=== PATIENT | male | born 1980 | race Caucasian/White ===

== ENCOUNTER 2017-02-03 04:45 | Inpatient (IN) | payer MEDICAID ==
[~2017-02-03] VITALS: Ht 177.8 cm; Wt 95.5 kg
[2017-02-03] VITALS (11 sets, daily range): BP systolic 118–158; BP diastolic 71–88
[~2017-02-03 04:45] MED LIST: LORA2TAB2 PO
[2017-02-03 05:39] LABS: BASOPHILS # (AUTO) 0.05 K/uL (0.00-0.20); BASOPHILS % (AUTO) 1.2 % (0.0-2.0); EOSINOPHILS # (AUTO) 0.03 K/uL (0.00-0.70); EOSINOPHILS % (AUTO) 0.64 % (1.0-6.0); HEMOGLOBIN 14.5 g/dL (13.5-17.5); LYMPHOCYTES # (AUTO) 1.4 K/uL (1.0-4.8); LYMPHOCYTES % (AUTO) 33.4 % (22.0-44.0); MEAN CORPUSCULAR HEMOGLOBIN 34.9 pg (26.0-34.0); MEAN CORPUSCULAR HGB CONC 34.5 G/dL (31.0-37.0); MEAN CORPUSCULAR VOLUME 101 fL (80-100); MONOCYTES # (AUTO) 0.3 K/uL (0.1-1.0); MONOCYTES % (AUTO) 7.3 % (2.0-9.0); NEUTROPHILS # (AUTO) 2.4 K/uL (1.8-7.7); NEUTROPHILS % (AUTO) 57.5 % (40.0-70.0); PLATELET COUNT (AUTO) 105 K/uL (150-450); RED BLOOD CELL COUNT(AUTO) 4.16 MIL/uL (4.50-5.90); RED CELL DISTRIBUTION WIDTH 15.9 % (11.5-14.5); WHITE BLOOD COUNT (AUTO) 4.2 K/uL (4.5-11.0)
[2017-02-03 05:53] LABS: ANION GAP 15 mmol/L (8-16); CARBON DIOXIDE 25 mmol/L (22-29); CHLORIDE 94 mmol/L (98-107); CREATININE 0.73 mg/dL (0.60-1.30); GLOMERULAR FILTR. RATE CALC > 60 mL/min (>60); POTASSIUM 3.4 mmol/L (3.5-5.1); SODIUM SERUM 134 mmol/L (136-145); UREA NITROGEN, BLOOD 7 mg/dL (7-18)
[2017-02-03 05:58] LABS: ALANINE AMINOTRANSFERASE 244 U/L (12-78); ALBUMIN 4.1 g/dL (3.4-5.0); ASPARTATE AMINOTRANSFERASE 409 U/L (15-37); BILIRUBIN,TOTAL 2.6 mg/dL (0.1-1.0); TOTAL PROTEIN, SERUM 7.9 g/dL (6.4-8.2)
[2017-02-03] MEDS ORDERED: SODIUM CHLORIDE 0.9% 1,000 ML IV ONE (06:00)
[2017-02-03] MEDS ORDERED: LORazepam 2 MG/ML VIAL IVP ONE (06:00)
[2017-02-03] MEDS ORDERED: ONDANSETRON HCL 4 MG/2 ML VIAL IVP ONE (06:00)
[2017-02-03 07:53] LABS: RBC MORPHOLOGY COMMENT ABNORMAL RBC MORPH
[2017-02-03] MEDS ORDERED: LOPERAMIDE HCL 2 MG CAPSULE PO PRN ×2 (10:30)
[2017-02-03] MEDS ORDERED: ACETAMINOPHEN 325 MG TABLET PO PRN (10:30)
[2017-02-03] MEDS ORDERED: CYANOCOBALAMIN 1,000 MCG/ML VIAL IM ONE (10:30)
[2017-02-03] MEDS ORDERED: ACETAMINOPHEN 500 MG TABLET PO ONE (10:30)
[2017-02-03] MEDS ORDERED: QUEtiapine FUMARATE 100 MG TABLET PO PRN (10:30)
[2017-02-03] MEDS ORDERED: HydrOXYzine PAMOATE 50 MG CAPSULE PO PRN (10:30)
[2017-02-03] MEDS ORDERED: ONDANSETRON HCL 4 MG TABLET PO ONE (10:30)
[2017-02-03] MEDS ORDERED: LORazepam 2 MG TABLET PO ONE (10:30)
[2017-02-03] MEDS ORDERED: GuaiFENesin/D-METHORPHAN [SUGAR-FREE] 200-20MG/10 ML SYRUP UDCUP PO PRN (10:30)
[2017-02-03] MEDS ORDERED: MAG HYDROX/AL HYDROX/SIMETH ES 30 ML SUSPENSION UDCUP PO PRN (10:30)
[2017-02-03] MEDS ORDERED: TUBERCULIN, PURIFIED PROTEIN DERIVATIVE 5 TU/0.1 ML SYG ID ONE (10:30)
[2017-02-03] MEDS ORDERED: MAGNESIUM HYDROXIDE SUSPENSION 30 ML UDCUP PO PRN (10:30)
[2017-02-03] MEDS ORDERED: ACAMPROSATE CALCIUM 333 MG DR TABLET PO SCH (13:00)
[2017-02-03 13:07] LABS: APPEARANCE,URINE CLOUDY (CLEAR); GLUCOSE, URINE (UA) NEGATIVE (NEGATIVE); KETONES,URINE 15 mg/dL (NEGATIVE); LEUKOCYTE ESTERASE ,URINE TRACE (NEGATIVE); OCCULT BLOOD,URINE NEGATIVE (NEGATIVE); PROTEIN,URINE POS 1+ (NEGATIVE)
[2017-02-03] MEDS: DIAZEPAM 10 MG TABLET PO PRN ×2 (13:32→20:15)
[2017-02-03 13:33] LABS: ADD UA MICROSCOPIC YES
[2017-02-03 13:34] LABS: RBC,URINE None Seen /HPF (0-2)
[2017-02-03 13:35] LABS: WBC,URINE 0-2 /HPF (0-5)
[2017-02-03 13:37] LABS: FINE GRANULAR CASTS,URINE 0-2 /LPF (None Seen)
[2017-02-03 13:38] LABS: CALCIUM OXALATE CRYSTALS,UR Few /LPF (None Seen)
[2017-02-03] MEDS ORDERED: INFLUENZA VIRUS VACCINE QVS 2017-18 (3YR+)/PF 60 MCG/0.5 ML SYRINGE IM ONE (14:15)
[2017-02-03] MEDS ORDERED: DIAZEPAM 10 MG TABLET PO ONE (14:30)
[2017-02-03] MEDS ORDERED: PNEUMOCOCCAL VACCINE POLYVALENT 0.5 ML VIAL [PPSV23] IM ONE (15:00)
[2017-02-03] MEDS: GABAPENTIN 300 MG CAPSULE PO SCH ×2 (16:23→20:15)
[2017-02-03] MEDS: THIAMINE HCL 100 MG TABLET PO SCH (16:23)
[2017-02-03] MEDS ORDERED: ONDANSETRON HCL 4 MG TABLET PO PRN (20:15)
[2017-02-03] MEDS: PRAZOSIN HCL 1 MG CAPSULE PO SCH (21:06)
[2017-02-03] MEDS: ZOLPIDEM TARTRATE 10 MG TABLET PO PRN (21:07)
[2017-02-04] VITALS (8 sets, daily range): BP systolic 110–148; BP diastolic 58–98
[2017-02-04] MEDS: DIAZEPAM 10 MG TABLET PO PRN ×2 (06:01→18:18)
[2017-02-04 08:18] LABS: BASOPHILS % (AUTO) 1.2 % (0.0-2.0); EOSINOPHILS % (AUTO) 1.8 % (1.0-6.0); HEMOGLOBIN 13.8 g/dL (13.5-17.5); LYMPHOCYTES # (AUTO) 1.1 K/uL (1.0-4.8); LYMPHOCYTES % (AUTO) 30.8 % (22.0-44.0); MEAN CORPUSCULAR HEMOGLOBIN 35.3 pg (26.0-34.0); MEAN CORPUSCULAR HGB CONC 35.3 G/dL (31.0-37.0); MEAN CORPUSCULAR VOLUME 100 fL (80-100); MONOCYTES # (AUTO) 0.3 K/uL (0.1-1.0); MONOCYTES % (AUTO) 8.7 % (2.0-9.0); NEUTROPHILS % (AUTO) 57.5 % (40.0-70.0); RED CELL DISTRIBUTION WIDTH 15.4 % (11.5-14.5); WHITE BLOOD COUNT (AUTO) 3.4 K/uL (4.5-11.0)
[2017-02-04] MEDS: GABAPENTIN 300 MG CAPSULE PO SCH ×4 (08:20→20:25)
[2017-02-04] MEDS: NALTREXONE HCL 50 MG TABLET PO SCH (08:20)
[2017-02-04] MEDS: FLUoxetine HCL 20 MG CAPSULE PO SCH (08:20)
[2017-02-04] MEDS: DIAZEPAM 10 MG TABLET PO SCH ×4 (08:20→20:26)
[2017-02-04] MEDS: MULTIVITAMINS WITH MINERALS, THERAPEUTIC TABLET PO SCH (08:20)
[2017-02-04] MEDS: THIAMINE HCL 100 MG TABLET PO SCH ×2 (08:20→16:06)
[2017-02-04] MEDS: FOLIC ACID 1 MG TABLET PO SCH (08:20)
[2017-02-04 08:37] LABS: PLATELET COUNT (AUTO) 98 K/uL (150-450)
[2017-02-04] MEDS ORDERED: POTASSIUM CHLORIDE 20 MEQ ER TABLET PO ONE (09:30)
[2017-02-04 09:38] LABS: HEMOGLOBIN A1C 5.5 % (4.5-6.2)
[2017-02-04 09:51] LABS: ALANINE AMINOTRANSFERASE 223 U/L (12-78); ALBUMIN 4.1 g/dL (3.4-5.0); ANION GAP 14 mmol/L (8-16); ASPARTATE AMINOTRANSFERASE 386 U/L (15-37); BILIRUBIN,TOTAL 3.6 mg/dL (0.1-1.0); CALCIUM, TOTAL 9.5 mg/dL (8.8-10.5); CARBON DIOXIDE 27 mmol/L (22-29); CHLORIDE 93 mmol/L (98-107); CHOL/HDL RATIO 17.3 (4.2-7.3); CREATININE 0.87 mg/dL (0.60-1.30); GLOMERULAR FILTR. RATE CALC > 60 mL/min (>60); POTASSIUM 3.6 mmol/L (3.5-5.1); SODIUM SERUM 134 mmol/L (136-145); THYROID STIMULATING HORMONE 2.26 uIU/mL (0.36-3.74); TOTAL PROTEIN, SERUM 7.8 g/dL (6.4-8.2); UREA NITROGEN, BLOOD 12 mg/dL (7-18)
[2017-02-04] MEDS: PRAZOSIN HCL 1 MG CAPSULE PO SCH (20:25)
[2017-02-04] MEDS: ATORVASTATIN CALCIUM 40 MG TABLET PO SCH (21:09)
[2017-02-04] MEDS: ZOLPIDEM TARTRATE 10 MG TABLET PO PRN (21:09)
[2017-02-05 00:24] VITALS: BP 107/64
[2017-02-05] MEDS: DIAZEPAM 10 MG TABLET PO PRN ×2 (00:58→04:36)
[2017-02-05 04:34] VITALS: BP 139/83
[2017-02-05] MEDS: MULTIVITAMINS WITH MINERALS, THERAPEUTIC TABLET PO SCH (08:50)
[2017-02-05] MEDS: FOLIC ACID 1 MG TABLET PO SCH (08:50)
[2017-02-05] MEDS: GABAPENTIN 300 MG CAPSULE PO SCH (08:50)
[2017-02-05] MEDS: DIAZEPAM 10 MG TABLET PO SCH ×4 (08:50→20:17)
[2017-02-05] MEDS: THIAMINE HCL 100 MG TABLET PO SCH ×2 (08:50→16:21)
[2017-02-05] MEDS: FLUoxetine HCL 20 MG CAPSULE PO SCH (08:50)
[2017-02-05] MEDS: NALTREXONE HCL 50 MG TABLET PO SCH (08:50)
[2017-02-05 08:52] VITALS: BP 145/100
[2017-02-05] MEDS: CHOLECALCIFEROL (VIT D3) 1,000 UNITS TABLET PO SCH (08:57)
[2017-02-05 09:11] LABS: APPEARANCE,URINE CLOUDY (CLEAR); GLUCOSE, URINE (UA) NEGATIVE (NEGATIVE); KETONES,URINE 15 mg/dL (NEGATIVE); LEUKOCYTE ESTERASE ,URINE SMALL (NEGATIVE); OCCULT BLOOD,URINE NEGATIVE (NEGATIVE); PROTEIN,URINE SEE CONFIRM (NEGATIVE)
[2017-02-05 09:18] LABS: ADD UA MICROSCOPIC YES
[2017-02-05 09:20] LABS: SULFOSALICYLIC ACID,URINE Trace (Negative)
[2017-02-05 09:23] LABS: RBC,URINE None Seen /HPF (0-2); SQUAMOUS EPITHELIAL CELL,UR Few /LPF (None Seen); WBC,URINE 0-2 /HPF (0-5)
[2017-02-05 09:25] LABS: AMORPHOUS SEDIMENT,UR Many /LPF (None Seen)
[2017-02-05] MEDS ORDERED: CloNIDine HCL 0.1 MG TABLET PO SCH ×2 (10:00→17:00)
[2017-02-05 10:14] VITALS: BP 119/79
[2017-02-05] MEDS: CIPROFLOXACIN HCL 500 MG TABLET PO SCH (12:00)
[2017-02-05 16:00] VITALS: BP 128/79
[2017-02-05] MEDS: GABAPENTIN 400 MG CAPSULE PO SCH ×2 (16:21→20:17)
[2017-02-05] MEDS ORDERED: CloNIDine HCL 0.1 MG TABLET PO PRN (17:00)
[2017-02-05 17:39] VITALS: BP 128/79
[2017-02-05] MEDS: PRAZOSIN HCL 1 MG CAPSULE PO SCH (20:17)
[2017-02-05] MEDS: ATORVASTATIN CALCIUM 40 MG TABLET PO SCH (20:23)
[2017-02-06] VITALS (9 sets, daily range): BP systolic 110–153; BP diastolic 68–93
[2017-02-06] MEDS: ZOLPIDEM TARTRATE 10 MG TABLET PO PRN ×2 (00:11→21:22)
[2017-02-06] MEDS: DIAZEPAM 10 MG TABLET PO PRN (04:47)
[2017-02-06] MEDS: THIAMINE HCL 100 MG TABLET PO SCH ×2 (08:18→17:04)
[2017-02-06] MEDS: CHOLECALCIFEROL (VIT D3) 1,000 UNITS TABLET PO SCH (08:18)
[2017-02-06] MEDS: GABAPENTIN 400 MG CAPSULE PO SCH ×4 (08:18→20:27)
[2017-02-06] MEDS: FLUoxetine HCL 20 MG CAPSULE PO SCH (08:18)
[2017-02-06] MEDS: NALTREXONE HCL 50 MG TABLET PO SCH (08:18)
[2017-02-06] MEDS: FOLIC ACID 1 MG TABLET PO SCH (08:18)
[2017-02-06] MEDS: MULTIVITAMINS WITH MINERALS, THERAPEUTIC TABLET PO SCH (08:18)
[2017-02-06] MEDS: CIPROFLOXACIN HCL 500 MG TABLET PO SCH (08:18)
[2017-02-06] MEDS: DIAZEPAM 5 MG TABLET PO SCH ×4 (08:20→20:26)
[2017-02-06] MEDS: DIAZEPAM 5 MG TABLET PO PRN (10:49)
[2017-02-06] MEDS ORDERED: PRAZ1 PO (14:01)
[2017-02-06] MEDS ORDERED: GABA-533 PO (14:01)
[2017-02-06] MEDS ORDERED: FLUO-191 PO (14:01)
[2017-02-06] MEDS ORDERED: NALT50TA PO (14:01)
[2017-02-06] MEDS ORDERED: DISU250 PO (14:01)
[2017-02-06] MEDS: ATORVASTATIN CALCIUM 40 MG TABLET PO SCH (20:26)
[2017-02-06] MEDS: PRAZOSIN HCL 1 MG CAPSULE PO SCH (20:27)
[2017-02-07 03:51] VITALS: BP 126/92
[2017-02-07] MEDS: DIAZEPAM 5 MG TABLET PO PRN (03:54)
[2017-02-07] MEDS ORDERED: DIAZEPAM 5 MG TABLET PO PRN (07:00)
[2017-02-07] MEDS ORDERED: OMEP20 PO (08:04)
[2017-02-07] MEDS ORDERED: CIPR250S4 PO (08:04)
[2017-02-07] MEDS ORDERED: ATOR40TA28 PO (08:07)
[2017-02-07 08:30] VITALS: BP 137/89
[2017-02-07] MEDS: FOLIC ACID 1 MG TABLET PO SCH (08:34)
[2017-02-07] MEDS: FLUoxetine HCL 20 MG CAPSULE PO SCH (08:34)
[2017-02-07] MEDS: GABAPENTIN 400 MG CAPSULE PO SCH ×2 (08:35→13:00)
[2017-02-07] MEDS: NALTREXONE HCL 50 MG TABLET PO SCH (08:35)
[2017-02-07] MEDS: CHOLECALCIFEROL (VIT D3) 1,000 UNITS TABLET PO SCH (08:35)
[2017-02-07] MEDS: MULTIVITAMINS WITH MINERALS, THERAPEUTIC TABLET PO SCH (08:35)
[2017-02-07] MEDS: THIAMINE HCL 100 MG TABLET PO SCH (08:35)
[2017-02-07] MEDS: CIPROFLOXACIN HCL 500 MG TABLET PO SCH (08:40)
[2017-02-07] MEDS ORDERED: DISULFIRAM 250 MG TABLET PO SCH (09:00)
== END 2017-02-07 11:30 | disposition home or self-care (01) | DRG 751 ==
LOC: EMS 04:47 → B2S 10:05
PROVIDERS: ADMIT Psychiatry & Neurology Psychiatry; ATTEND Psychiatry & Neurology Psychiatry
PROC: 3E0234Z Introduction of Serum, Toxoid and Vaccine into Muscle, Percutaneous Approach (ICD-10-PCS; principal; 2017-02-03)
DX: F33.2 Major depressive disorder, recurrent severe without psychotic features (principal); R45.851 Suicidal ideations; N19 Unspecified kidney failure; Z91.19 Patient's noncompliance with other medical treatment and regimen; E78.5 Hyperlipidemia, unspecified; Z23 Encounter for immunization; E86.0 Dehydration; F10.10 Alcohol abuse, uncomplicated; F43.10 Post-traumatic stress disorder, unspecified; K29.20 Alcoholic gastritis without bleeding; Z79.899 Other long term (current) drug therapy; Z81.1 Family history of alcohol abuse and dependence; F17.210 Nicotine dependence, cigarettes, uncomplicated
CPT/HCPCS: 83036; 84439; 84443; 86592; 90471; 93005; 96361; 96372; 96374; 96375; 99285; G0480; J2060; J2405; J3420; Q0162

== ENCOUNTER 2017-06-13 13:28 | Emergency (ER) | payer SELFPAY ==
[~2017-06-13] VITALS: Ht 177.8 cm; Wt 102.3 kg
[~2017-06-13 13:28] MED LIST changes: +ATOR40TA28 PO; +DISU250 PO; +FLUO-191 PO; +GABA-533 PO; -LORA2TAB2 PO; +NALT50TA PO; +PRAZ1 PO
[2017-06-13 15:33] LABS: HEMATOCRIT 41.8 % (41-53); HEMOGLOBIN 14.8 g/dL (13.5-17.5); MEAN CORPUSCULAR HEMOGLOBIN 34.9 pg (26.0-34.0); MEAN CORPUSCULAR HGB CONC 35.4 G/dL (31.0-37.0); MEAN CORPUSCULAR VOLUME 99 fL (80-100); PLATELET COUNT (AUTO) 116 K/uL (150-450); RED BLOOD CELL COUNT(AUTO) 4.24 MIL/uL (4.50-5.90); RED CELL DISTRIBUTION WIDTH 17.9 % (11.5-14.5)
[2017-06-13 15:44] LABS: ANION GAP 9 mmol/L (8-16); CALCIUM, TOTAL 8.4 mg/dL (8.8-10.5); CARBON DIOXIDE 30 mmol/L (22-29); CHLORIDE 100 mmol/L (98-107); CREATININE 0.81 mg/dL (0.60-1.30); GLOMERULAR FILTR. RATE CALC > 60 mL/min (>60); GLUCOSE,RANDOM 120 mg/dL (70-110); POTASSIUM 3.2 mmol/L (3.5-5.1); SODIUM SERUM 139 mmol/L (136-145); UREA NITROGEN, BLOOD 3 mg/dL (7-18)
[2017-06-13 15:47] LABS: APPEARANCE,URINE CLEAR (CLEAR); GLUCOSE, URINE (UA) NEGATIVE (NEGATIVE); KETONES,URINE NEGATIVE (NEGATIVE); LEUKOCYTE ESTERASE ,URINE NEGATIVE (NEGATIVE); NITRATE,URINE NEGATIVE (NEGATIVE); OCCULT BLOOD,URINE NEGATIVE (NEGATIVE); PROTEIN,URINE NEGATIVE (NEGATIVE)
[2017-06-13 15:49] LABS: AMMONIA 35 umol/L (11-32)
[2017-06-13 15:50] LABS: TROPONIN I < 0.02 ng/mL (0.00-0.05)
[2017-06-13 15:51] LABS: INR 1.3 (0.9-1.1); PROTHROMBIN TIME 13.2 SEC (9.4-11.6)
[2017-06-13 15:52] LABS: ALANINE AMINOTRANSFERASE 82 U/L (12-78); ALBUMIN 3.4 g/dL (3.4-5.0); ALKALINE PHOSPHATASE 222 U/L (46-116); ASPARTATE AMINOTRANSFERASE 212 U/L (15-37); BILIRUBIN,TOTAL 7.2 mg/dL (0.1-1.0); LIPASE 199 U/L (73-393); TOTAL PROTEIN, SERUM 6.8 g/dL (6.4-8.2)
[2017-06-13 15:54] LABS: BILIRUBIN,URINE PRELIM. POSITIVE (NEGATIVE)
[2017-06-13 16:07] LABS: B-TYPE NATRIURETIC PEPTIDE 22 pg/mL (0-100)
[2017-06-13 16:51] LABS: BASOPHILS % (MANUAL) 1 % (0-2); LYMPHOCYTES % (MANUAL) 46 % (22-44); MONOCYTES % (MANUAL) 1 % (2-9); SEGMENTED NEUTROPHILS % 52 % (40-70)
[2017-06-13 18:51] VITALS: BP 118/77
== END 2017-06-13 19:34 | disposition home or self-care (01) ==
LOC: EMS 13:30
DX: K70.10 Alcoholic hepatitis without ascites (principal); F10.229 Alcohol dependence with intoxication, unspecified; Y90.8 Blood alcohol level of 240 mg/100 ml or more
CPT/HCPCS: 36415; 71045; 76700; 80053; 81003; 82140; 83690; 83880; 84484; 85025; 85610; 85730; 93005; 99285; G0480